=== PATIENT | female | born 1985 | race Caucasian/White ===

== ENCOUNTER 2021-03-12 12:13 | Emergency (ER) | payer OTHER, SELFPAY ==
[2021-03-12 12:27] VITALS: BP 115/61; PULSE 61; RESP 20; TEMP 37.1; O2SAT 100
--- NOTE | 2021-03-12 13:26 | ED_ITS ---
HPI - Eye Problem General Chief complaint: Eye Problems Stated complaint: Stye On Left Eye Time Seen by Provider: 03/12/21 13:22 Source: patient Mode of arrival: Ambulatory History of Present Illness HPI Narrative: patient is a 35-year-old female who presents with all left eye stye. She says it has been there for about 2 weeks but feels like it is getting bigger. She is using warm compresses daily along with erythromycin ophthalmic ointment. She would like it drained. He has no further swelling erythema fever or chills around her eye. She has not taken Tylenol or ibuprofen for pain Review of Systems Review of Systems Narrative: GENERAL: Denies chills,fever HEENT: see HPI RESPIRATORY: Denies dyspnea, cough, wheezing CARDIOVASCULAR: Denies chest pain, palpitations GASTROINTESTINAL: Denies nausea, vomiting MUSCULOSKELETAL: Denies extremity pain, injury SKIN: No rash, no laceration, no pruritus NEUROLOGIC: Denies weakness, dizziness, headache, numbness 8 point review of systems is negative except for those stated above and HPI Exam Initial Vital Signs Initial Vital Signs: Vital Signs Temperature 98.8 F 03/12/21 12:27 Pulse Rate 61 03/12/21 12:27 Respiratory Rate 20 03/12/21 12:27 Blood Pressure 115/61 03/12/21 12:27 Pulse Oximetry 100 03/12/21 12:27 GENERAL: Well-appearing, well-nourished and in no acute distress. EYE: Left eye lower lid external stye fluctuant, no surrounding erythema able to open eye completely, EOMI CARDIOVASCULAR: peripheral pulses in tact, cap refill <2 sec RESPIRATORY: No respiratory distress, speaks in full sentences without diffi culty EXTREMITIES: Normal range of motion, no clubbing or edema. Neurovascularly intact NEUROLOGICAL: Cranial nerves II through XII grossly intact. Normal gait and speech. SKIN: Warm, dry, no petechiae, no rashes or lesions. Course Vital Signs Vital signs: Vital Signs - 8 hr 03/12/21 12:27 Temperature 98.8 F Pulse Rate 61 Respiratory Rate 20 Blood Pressure 115/61 Pulse Oximetry 100 MDM - Eye Problem MDM Narrative Medical decision making narrative: Patient requested that the stye be opened and drained. I have informed her that that is not medically indicated and I encouraged her continue to continue warm compresses along with erythromycin ophthalmic ointment. She states that she was under the impression that the emergency department with open this. She walked out prior to her discharge instructions. Discharge Plan Departure Patient Disposition: Home Clinical Impression: Hordeolum externum Qualifiers: Laterality: left Eyelid: lower Qualified Code(s): H00.015 - Hordeolum externum left lower eyelid Instructions: DI for Hordeolum
== END 2021-03-12 13:26 | disposition home or self-care (01) ==
PROVIDERS: Emergency Provider Emergency Medicine
DX: H00.015 Hordeolum externum left lower eyelid (principal)
CPT/HCPCS: 99281